=== PATIENT | female | born 1955 | race Hispanic/Latino ===

== ENCOUNTER → 2022-12-01 | Outpatient (CLI) | payer MEDICARE | LOC: CARD 09:19 | PROVIDERS: ATTEND Nurse Practitioner Adult Health | DX: Z12.31 Encounter for screening mammogram for malignant neoplasm of breast (principal); M85.88 Other specified disorders of bone density and structure, other site; I10 Essential (primary) hypertension; R09.89 Other specified symptoms and signs involving the circulatory and respiratory systems; R73.03 Prediabetes; Z86.39 Personal history of other endocrine, nutritional and metabolic disease | CPT/HCPCS: 77067; 77080; 93925 ==

== ENCOUNTER → 2022-12-21 | Outpatient (CLI) | payer MEDICARE | LOC: MAMMO 10:14 | PROVIDERS: ATTEND Nurse Practitioner Adult Health | DX: N64.89 Other specified disorders of breast (principal) ==